=== PATIENT | female | born 1990 | race Caucasian/White ===

== ENCOUNTER 2020-04-17 08:02 | Outpatient (REF) | payer BC, SELFPAY ==
[2020-04-18 19:02] LABS: C. trachomatis RNA TMA NOT DETECTED (NOT DETECTED); N. gonorrhoeae RNA TMA NOT DETECTED (NOT DETECTED)
[2020-04-20 06:57] LABS: HPV mRNA E6/E7 rflx Not Detected (Not Detected)
== END 2020-04-17 08:03 | disposition home or self-care (01) ==
LOC: HO.LAB 08:02
PROVIDERS: PCP Internal Medicine Medical Oncology; Visit Provider Advanced Practice Midwife
DX: Z01.419 Encounter for gynecological examination (general) (routine) without abnormal findings (principal); Z20.2 Contact with and (suspected) exposure to infections with a predominantly sexual mode of transmission; N90.7 Vulvar cyst
CPT/HCPCS: 36415; 87491; 87591; 87624; 88142

== ENCOUNTER 2021-01-23 16:28 | Outpatient (REF) | payer BC, SELFPAY ==
[2021-01-24 04:39] LABS: HBS Num1 71.79 mIU/mL (0-7.99); ~Hepatitis B Surface Antibody REACTIVE (Nonreactive)
[2021-01-24 10:11] LABS: Rubella IgG Antibody 9.04 Index; Rubeola IgG (Measles) >300.00 AU/mL
[2021-01-25 03:56] LABS: Hepatitis A Antibody IgG Nonreactive (Nonreactive); ~Hepatitis A Antibody IgG 0.26 S/CO (0.00-0.99)
[2021-01-29 15:22] LABS: Tetanus Antitoxiod Antibody 1.11 IU/mL
== END 2021-01-23 16:29 | disposition home or self-care (01) ==
LOC: HO.LAB 16:28
PROVIDERS: PCP Internal Medicine Medical Oncology; Visit Provider Internal Medicine Medical Oncology
DX: Z01.84 Encounter for antibody response examination (principal)
CPT/HCPCS: 36415; 86706; 86708; 86735; 86762; 86765; 86774; 86787

== ENCOUNTER → 2021-05-21 08:09 | Outpatient (BNVA) | payer BC, SELFPAY | PROVIDERS: PCP Internal Medicine Medical Oncology; Visit Provider Advanced Practice Midwife ==

== ENCOUNTER → 2021-08-22 09:51 | Outpatient (BNVA) | payer BC, SELFPAY | PROVIDERS: PCP Internal Medicine Medical Oncology; Visit Provider Advanced Practice Midwife | DX: Z13.89 Encounter for screening for other disorder (principal) ==

== ENCOUNTER 2022-07-23 09:14 | Outpatient (REF) | payer BC, SELFPAY ==
[2022-07-23 10:52] LABS: MANUAL DIFF FLAG NO
[2022-07-23 11:29] LABS: Basophils Percent Auto 0.5 % (0-2); Eosinophils Absolute Auto 0.1 X10*3/uL (0.0-0.4); Eosinophils Percent Auto 0.7 % (0-4); Hematocrit 39.6 % (37.0-47.0); Hemoglobin 13.4 g/dl (12.0-16.0); Imm Gran Abs Auto 0.03 X10*3/uL (0.00-0.03); Imm Gran Pct Auto 0.4 % (0.0-0.4); Lymphocytes Absolute Auto 1.8 X10*3/uL (1.2-4.9); Lymphocytes Percent Auto 20.8 % (20-40); Mean Corpuscular HGB Conc 33.8 g/dl (31.0-35.0); Mean Corpuscular Hemoglobin 31.8 pg (27.0-33.0); Mean Corpuscular Volume 93.8 fL (80.0-98.0); Mean Platelet Volume 9.7 fL (9.4-12.3); Monocytes Absolute Auto 0.7 X10*3/uL (0.1-1.2); Monocytes Percent Auto 8.7 % (2-11); Neutrophils Absolute Auto 5.9 x10*3/uL (2.0-8.3); Neutrophils Percent Auto 68.9 % (45-73); Platelet Count 309 X10*3/uL (160-400); Red Blood Count 4.22 X10*6/uL (4.20-5.50); Red Cell Distribution Width 11.6 % (11.0-16.0); White Blood Count 8.5 X10*3/uL (4.8-10.8)
[2022-07-23 12:13] LABS: Alanine Aminotransferase 47 U/L (0-31); Albumin Level 4.6 g/dL (3.5-5.0); Alkaline Phosphatase 49 U/L (39-117); Anion Gap 9 (12-20); Aspartate Amino Transferase 37 U/L (5-31); Bilirubin Total 0.5 mg/dL (0.0-1.0); Blood Urea Nitrogen 9 mg/dL (9-16); Calcium 9.3 mg/dL (8.4-10.2); Carbon Dioxide 28 mmol/L (22-29); Chloride 108 mmol/L (96-108); Cholesterol 206 mg/dL; Estimated Glomerular Filt Rate > 60; Glucose Random 88 mg/dL (60-115); HDL Cholesterol 50 mg/dL; LDL Cholesterol Calculated 143 mg/dl; Potassium 4.1 mmol/L (3.3-5.1); Sodium 141 mmol/L (135-145); Total Protein 7.5 g/dL (6.5-8.0); Triglycerides 69 mg/dL
== END 2022-07-23 09:15 | disposition home or self-care (01) ==
LOC: HO.LAB 09:14
PROVIDERS: Absent Provider Internal Medicine Medical Oncology; PCP Internal Medicine Medical Oncology; Visit Provider Advanced Practice Midwife
DX: Z00.00 Encounter for general adult medical examination without abnormal findings (principal); E61.1 Iron deficiency; B26.9 Mumps without complication; E78.5 Hyperlipidemia, unspecified
CPT/HCPCS: 36415; 80053; 80061; 85025

== ENCOUNTER 2023-08-20 09:29 | Outpatient (AMB) | payer BC, SELFPAY ==
--- NOTE | 2023-08-20 09:36 | A.OFFVIS_ITS ---
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 regarding hormones keeps on breaking out Membership Counselor Required: No Information Interpreted: non-clinical & clinical Independent Trader: Independent Trader Present (Aidyn) Allergies No Known Allergies Allergy (Verified 08/20/23 09:40) Is last menstrual period known: Yes Last menstrual period: 08/12/23 Post menopausal: No HPI Comments Details: She is a premenopausal woman presenting for annual examination. Doing well with no concerns. Doing well on Solange. 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 She denies any contraindications to control such as: migraines with aura, history of DVT or pulmonary emboli, high blood pressure, liver disease, thrombolic disorders, Lupus, +HERMELINDA, breast cancer, or smoking. She tries to eat healthy and stays active with exercise. Currently is sexually active, long-term partner. She denies vaginal itching and irritation. STI screening offered; she declined. Denies family history of breast or ovarian. FH colon cancer-PGF. Last pap smear 2020, negative. PFSH Family History Paternal Grandfather Colon cancer Social History Alcohol intake: current Alcohol intake frequency: holidays/special occasions only Patient Tobacco Use Status: Never used Tobacco Sexual orientation: Straight/Heterosexual Gender identity: Female Female Reproductive History Menstrual Age of Menarche: 11 Duration of menses: 3-5 days Date of last menstrual period: 08/12/23 control method: pills Total pregnancies: 0 Date of last pap smear: 04/18/20 (negative) Review of Systems Const All systems reviewed & are unremarkable except as noted in HPI and below Reports as per HPI Eyes Reports no additional complaints ENT Reports no additional complaints Card Reports no additional complaints Resp Reports no additional complaints GI Reports as per HPI and Reports no additional complaints Reports as per HPI Musc Reports no additional complaints Skin/Breast Reports as per HPI Neuro Reports no additional complaints Psych Reports no additional complaints Endo Reports no additional complaints Rainer/Lymph Reports no additional complaints Aller/Immun Reports no additional complaints Physical Exam Vital Signs: Last Vital Signs BP 118/66 08/20/23 09:38 BMI result Body Mass Index 24.3 Const General: cooperative, healthy appearing, no acute distress, well developed and alert Orientation/consciousness: patient oriented x3 HEENT Head: Yes normal to inspection Eyes General: appearance normal, both eyes and all related structures Neck Neck: Yes normal visual inspection Thyroid: Thyroid normal Chest Chest palpation & inspection: normal inspection of the chest and other (no puckering, dimpling, peau de orange, retraction, discharge, masses) Breast/axilla inspection: normal inspection of the breasts Breast/axilla palpation: normal palpation of the breasts Resp Effort & Inspection: normal respiratory effort GI Inspection: Yes normal to inspection Palpation (GI): Soft to palpation Rectal Exam - Female: deferred General: Yes bladder normal to palpation External Female Exam: normal external appearance and normal appearance of the ur ethra Speculum Exam - Vagina: normal appearance of the vagina, normal palpation and normal vaginal discharge Speculum Exam - Cervix: normal appearance of the cervix and normal palpation Bimanual exam- vagina & uterus: normal bimanual exam, normal palpation, uterine size normal, bladder normal to palpation, normal palpation and non-tender Bimanual Exam- Adnexa, other: no masses Skin General skin exam: no rashes or lesions noted Rashes: no rashes Neuro General: patient oriented x3 Cognition (Neuro): normal cognition Extrem General: Yes normal to inspection Psych Attitude: cooperative Thought process: Normal thought process present Assessment & Plan Assessment & Plan (1) Encounter for annual routine gynecological examination: Code(s): Z01.419 - Encounter for gynecological examination (general) (routine) without abnormal findings Category: Medical Plan: Discussed: Current recommendations for pap smears per ASCCP guidelines. Breast awareness and periodic breast exams. Maintain a healthy lifestyle including a well balanced diet and routine exercise. control hormone use warnings: go to ER if and loss of vision, blindness, severe headache, chest pain or difficulty breathing, severe abdominal pain, or any pain or swelling in an extremity. Patient verbalizes understanding and agrees to the plan of care. She was given opportunity to ask questions and all questions were answered to the best of my ability. 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 This note is constructed using voice recognition software. While every effort has been made to ensure accuracy, fire production operator errors may have been included. Medications: Refilled norethindrone (contraceptive) (Shari) 0.35 mg PO DAILY 84 tabs 4RF 28 days Coding Level of Care Code Est Pt Prev Care 18-39y(61875) Diagnoses Encounter for annual routine gynecological examination Z01.419
[2023-08-20 09:38] VITALS: BP 118/66; BMI 24.3
== END 2023-08-20 10:03 | disposition home or self-care (01) ==
PROVIDERS: PCP Internal Medicine Medical Oncology; Visit Provider Advanced Practice Midwife
DX: Z01.419 Encounter for gynecological examination (general) (routine) without abnormal findings (principal)
CPT/HCPCS: 99395

== ENCOUNTER → 2023-08-20 09:29 | Outpatient (BNVA) | payer BC, SELFPAY | PROVIDERS: PCP Internal Medicine Medical Oncology; Visit Provider Advanced Practice Midwife ==

== ENCOUNTER 2024-09-20 10:11 | Outpatient (REF) | payer BC, SELFPAY ==
[2024-09-20 10:23] LABS: MANUAL DIFF FLAG NO
--- OUTSIDE RECORDS SUMMARY | 2024-09-20 11:17 | XMS_ITS | Patient Health Record ---
Author Organization Joseph Gutiérrez III, MD Address [address] [place] [address] Care Team Providers Care Content Specialist Name Role Phone Joseph Gutiérrez Primary Care [...] 0.2 - 1.3 BLD Positive Negative - Reason For Referral No Information Medications Medication SIG (Take, Route, Fr equency, Duration) Notes Start Date End Date Status Norethindrone 0.35 MG Oral Active Immunizations Vaccine Route Administration Date Status Comme nts Tdap Unknown 12/27/2014 Administered Influenza, quad Unknown 01/20/2020 Administered COVID- 19 Vaccine Unknown 03/07/2021 Administered COVID- 19 Vaccine Unknown 08/12/2020 Administered COVID- 19 Vaccine Unknown 07/14/2020 Administered Influenza, quad Unknown 03/07/2021 Administered Social History Tobacco Use: Social History Observation [...] ast year? No Points 0 Interpretation Negative Problems Problem Type SNOMED Code ICD Code Onset Dates Problem Status W/U Status Risk Notes Problem Mumps without complication (652342868) Mumps without complication (B26.9) Active confirmed Problem 39530008 Iron deficiency (E61.1) Active confirmed She is not currently on medication and is not taking iron. Her CBC will be observed. Problem Food allergy (913854742) Allergy to other foods (Z91.018) Active confirmed Problem 299320823 Environmental allergies (Z91.09) Active confirmed At her request I have referred her to an force variation equipment tender. It is possible she has a food allergy or other causes oral blistering and ulceration. Problem 700157881 Gastroesophageal reflux disease with esophagitis without hemorrhage (K21.00) Active confirmed A regimen of antacid therapy was initiated today. Vital Signs Heart Rate 78 /min 09/23/2023 Temperature 98.1 degrees Fahrenheit 09/23/2023 Blood pressure diastolic 69 mm Hg 09/23/2023 Height 63 in 09/23/2023 Blood pressure systolic 114 mm Hg 09/23/2023 Weight 133 lbs 09/23/2023 BMI 23.56 kg/m2 09/23/2023 Encounters Encounter Location Date Provider Diagnosis Joseph Gutiérrez III, MD [address] [place] [address] [place] [address] 09/23/2023 Joseph Gutiérrez Iron deficiency E61. 1 [...] request I have referred her to an force variation equipment tender. It is possible she has a food allergy or other causes oral blistering and ulceration. Plan Of Treatment Pending Test Test Name Order Date PROFILE, FASTING (COMPREHENSIVE METABOLI C) 07/23/2022 PROFILE, FASTING (COMPREHENSIVE METABOLI C) 09/23/2023 PROFILE, FASTING (COMPREHENSIVE METABOLI C) 05/21/2021 PROFILE, FASTING (COMPREHENSIVE METABOLI C) 03/15/2020 PROFILE, RANDOM (COMPREHENSIVE METABOLIC ) 02/03/2018 LIPID PANEL 03/15/2020 LIPID PANEL 02/03/2018 LIPID PANEL 05/21/2021 CBC w DIFF 07/23/2022 CBC w DIFF 03/15/2020 CBC w DIFF 02/03/2018 CBC w DIFF 05/21/2021 CBC WITH AUTO DIFF 09/23/2023 Ferritin 09/23/2023 Lipid Panel 09/23/2023 Next Appt Details Provider Name:Joseph Gutiérrez, 09/26/2024 09:30:00 AM, [address] [place] [address] [address], [place], [address], Insurance Providers Payer Name Payer Address Payer Phone Subscriber Number Group Number Insured Name Patient Relationship to Insured Coverage Start Date Coverage End Date [facility] [address] [place], [place] [id number] [place] Venegas Self - patient is the insured Medical (General) History Medical History History ICD Code episode of syncope iron deficiency anemia Surgical History Surgery Date(Month/Year) no history of surgical procedures
[2024-09-20 11:38] LABS: Hematocrit 41.6 % (37.0-47.0); Hemoglobin 14.4 g/dl (12.0-16.0); Imm Gran Abs Auto 0.03 X10*3/uL (0.00-0.03); Imm Gran Pct Auto 0.4 % (0.0-0.4); Lymphocytes Absolute Auto 2.4 X10*3/uL (1.2-4.9); Mean Corpuscular HGB Conc 34.6 g/dl (31.0-35.0); Mean Corpuscular Hemoglobin 31.4 pg (27.0-33.0); Mean Corpuscular Volume 90.8 fL (80.0-98.0); NRBC Abs Auto 0.000 X10*3/uL (0.0-0.012); NRBC Pct Auto 0.0 /100WBC (0.0-0.2); Platelet Count 317 X10*3/uL (160-400); Red Blood Count 4.58 X10*6/uL (4.20-5.50); White Blood Count 6.9 X10*3/uL (4.8-10.8)
[2024-09-20 12:06] LABS: Alanine Aminotransferase 23 U/L (0-31); Albumin Level 4.8 g/dL (3.5-5.0); Alkaline Phosphatase 47 U/L (39-117); Anion Gap 12 (12-20); Aspartate Amino Transferase 19 U/L (5-31); Blood Urea Nitrogen 18 mg/dL (9-16); Calcium 9.0 mg/dL (8.4-10.2); Carbon Dioxide 24 mmol/L (22-29); Chloride 106 mmol/L (96-108); Cholesterol 274 mg/dL (<200); Estimated Glomerular Filt Rate > 60; HDL Cholesterol 54 mg/dL (>40); Potassium 3.8 mmol/L (3.3-5.1); Sodium 138 mmol/L (135-145); Total Protein 7.9 g/dL (6.5-8.0); Triglycerides 91 mg/dL (<150)
[2024-09-20 12:26] LABS: Ferritin 244 ng/mL (10-122)
== END 2024-09-20 10:12 | disposition home or self-care (01) ==
LOC: HO.LAB 10:11
PROVIDERS: PCP Internal Medicine Medical Oncology; Visit Provider Internal Medicine Medical Oncology
DX: Z00.00 Encounter for general adult medical examination without abnormal findings (principal); E61.1 Iron deficiency
CPT/HCPCS: 36415; 80053; 80061; 82728; 85025

== ENCOUNTER 2024-10-03 08:55 | Outpatient (REF) | payer BC, SELFPAY ==
[2024-10-03 10:15] LABS: Cholesterol 286 mg/dL (<200); HDL Cholesterol 45 mg/dL (>40); Triglycerides 76 mg/dL (<150)
== END 2024-10-03 08:56 | disposition home or self-care (01) ==
LOC: HO.LAB 08:55
PROVIDERS: Visit Provider Internal Medicine Medical Oncology
DX: Z00.00 Encounter for general adult medical examination without abnormal findings (principal); E61.1 Iron deficiency
CPT/HCPCS: 36415; 80061

== ENCOUNTER 2024-11-28 08:22 | Outpatient (REF) | payer BC, SELFPAY ==
--- OUTSIDE RECORDS SUMMARY | 2023-07-29 13:00 | XMS_ITS ---
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 Name Role Phone Joseph Gutiérrez Primary Care Provider [phone] REASON FOR VISIT Annual Exam Social History Sex Assigned At : Social History Observation Description Sex Assigned At Female Encounters Encounter Location Date Provider Diagnosis Joseph Gutiérrez III, MD [address] [place] [address] [place] [address] 07/29/2023 Joseph Gutiérrez Plan Of Treatment Next Appt Details Provider Name:Joseph Gutiérrez, 12/06/2024 09:00:00 AM, [address] [place] [address] [place], [address], Provider Name:Joseph Gutiérrez, 09/27/2025 09:30:00 AM, [address] [place] [address] [place], [phone], Progress Notes * VENEGASEusebiaOB:[birth year] (34 yo F)Acc No.[id number]:07/29/2023 Progress Notes Patient: [place] CALERO Provider: Andrew Gutiérrez MD :1990 A ge:33 Y S ex:Female Date:07/29/2023 Address:[address] [facility] Subjective: * Chief Complaints: * 1 . Annual Exam. * Medical History: Objective: * Vitals: Assessment: Plan: * Treatment: * Images: * The named appointment provid er may or may not be the originator of this progress note, and it is not deemed complete until electronically signed by the appointment provider. Sign off status: Pending * Provider: Andrew Gutiérrez MD Date: 07/29/2023 Generated for Moriah sandoval/Brooks/Yesenia on: 11/28/2024 09:16 AM EDT
--- OUTSIDE RECORDS SUMMARY | 2023-09-15 13:15 | XMS_ITS ---
Author Organization Joseph Gutiérrez III, MD Address [address] [place] [address] [place] [address] Care Team Providers Care Cycle Repairer Name Role Phone Joseph Gutiérrez Primary Care Provider REASON FOR VISIT Annual Exam Social History Sex Assigned At : Social History Observation Description Sex Assigned At Female Encounters Encounter Location Date Provider Diagnosis Joseph Gutiérrez III, MD [address] [place] [address] [address] [facility] [place] [address] 09/15/2023 Joseph Gutiérrez Plan Of Treatment Next Appt Details Provider Name:Joseph Gutiérrez, 12/06/2024 09:00:00 AM, [address] [place] [address] [place], [address], Provider Name:Joseph Gutiérrez, 09/27/2025 09:30:00 AM, [address] [place] [address] [address] [facility] [place] [place], [address], Progress Notes * VENEGASEusebiaOB:[birth year] (34 yo F)Acc No.[id number]:09/15/2023 Progress Notes Patient: [place] CALERO Provider: Andrew Gutiérrez MD :1990 A ge:33 Y S ex:Female Date:09/15/2023 Address:[address] [id number] Subjective: * Chief Complaints: * 1 . Annual Exam. * Medical History: Objective: * Vitals: Assessment: Plan: * Treatment: * Images: * The named appointment provid er may or may not be the originator of this progress note, and it is not deemed complete until electronically signed by the appointment provider. Sign off status: Pending * Provider: Andrew Gutiérrez MD Date: 0 09/15/2023 Generated for Moriah sandoval/Brooks/Yesenia on: 11/28/2024 09:16 AM EDT
--- OUTSIDE RECORDS SUMMARY | 2023-09-23 05:00 | XMS_ITS ---
Author Organization Joseph Gutiérrez III, MD Address [address] [place] [address] Care Team Providers Care Records Supervisor Name Role Phone Joseph Gutiérrez Primary Care Provider Allergies Allergen (clinical drug ingredient) Drug/Non Drug Allergy documented on EMR Reaction Allergy Type Onset Date Status No Known Drug Allergy Unknown Drug Allergy Active Results Component Value Reference Range Notes URINE DIP STICK Reviewed date:09/23/2023 02:36:38 PM Interpretation: Performing Lab: Notes/Report: SG 1.030 1.005 - 1.025 pH 5.0 5.0 - 9.0 BRANDY Negative Negative - NIT Negative Negative - PRO 15 Negative - Trace GLU Negative Negative - KET Negative Negative - UBG 0.2 0.1 - 1.8 KAILEE Negative 0.2 - 1.3 BLD Positive Negative - REASON FOR VISIT Annual Exam Medications Medication SIG (Take, Route, Fr equency, Duration) Notes Start Date End Date Status Norethindrone 0.35 MG Oral Active Social History Tobacco Use: Social History Observation Description Date Details (start date - stop date) Never Smoker NA - NA Sex Assigned At : Social History Observation Description Sex Assigned At Female Tobacco Use/Smoking Question Answer Notes Patient is a nonsmoker Additional Findings: Tobacco Non-User Aggressive non-smoker Alcohol Screen Question Answer Notes Did you have a drink containing alcohol in the p ast year? No Points 0 Interpretation Negative Vital Signs Temperature 98.1 degrees Fahrenheit 09/23/19 24 Blood pressure systolic 114 mm Hg 09/23/19 24 Blood pressure diastolic 69 mm Hg 024 Heart Rate 78 /min 09/23/2023 Height 63 in 09/23/2023 Weight 133 lbs 09/23/2023 BMI 23.56 kg/m2 09/23/2023 Encounters Encounter Location Date Provider Diagnosis Joseph Gutiérrez III, MD [address] [place] [address] [place] [address] 09/23/2023 Joseph Gutiérrez Iron deficiency E61. 1 ; Gastroesophageal reflux disease with esophagitis without hemorrhage K21.00 and Environmental allergies Z91.09 Assessments Encounter Date Diagnosis (ICD Code) Assessment Notes Treat ment Notes Treatment Clinical Notes 09/23/2023 Iron deficiency (ICD -10 - E61.1) She is not currently on medication and is not taking iron. Her CBC will be observed. 09/23/2023 Gastroesophageal ref lux disease with esophagitis without hemorrhage (ICD-10 - K21.00) A regimen of antacid therapy was initiated today. 09/23/2023 Environmental allerg ies (ICD-10 - Z91.09) At her request I have referred her to an gis professor. It is possible she has a food allergy or other causes oral blistering and ulceration. Plan Of Treatment Medication Medication Name Sig Start Date Stop Date Notes Norethindrone 0.35 MG Oral Pending Test Test Name Order Date PROFILE, FASTING (COMPREHENSIVE METABOLI C) 09/23/2023 CBC WITH AUTO DIFF 09/23/2023 Ferritin 09/23/2023 Lipid Panel 09/23/2023 Next Appt Details Follow Up: 1 Year, Reason: O V, Annual Exam Provider Name:Joseph Gutiérrez, 12/06/2024 09:00:00 AM, [address] [place] [address] [address], [place], [phone], Provider Name:Joseph Gutiérrez, 09/27/2025 09:30:00 AM, [address] [place] [address] [place], [address], Progress Notes * Eusebia VENEGASOB:[birth year] (33 yo F)Acc No.[id number]:09/23/2023 Progress Notes Patient: [place] Bunch Provider: Andrew Gutiérrez MD :1990 A ge:33 Y S ex:Female Date:09/23/2023 Address:[address] [facility] Subjective: * Chief Complaints: * A nnual Exam * HPI: D epression Screening: She returns to the office at the age of 33 for her annual physical examination. She remains healthy and well. Her periods are regular. 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 She is not . Her esophageal reflux symptoms are well controlled. Her allergies were mild this year. She has been to an gis professor and is being treated. PHQ-9 L ittle interest or pleasure in doing things?Not at all F eeling down, depressed, or hopeless S ever T rouble falling or staying asleep, or sleeping too much N ot at all F eeling tired or having little energy S ever P oor appetite or overeating N ot at all F eeling bad about yourself or that you are a failure, or have let yourself or your family down N ot at all T rouble concentrating on things, such as reading the newspaper or watching television S ever M oving or speaking so slowly that other people could have noticed; or the opposite, being so fidgety or restless that you have been moving around a lot more than usual N ot at all T houghts that you would be better off or of hurting yourself in some way N ot at all T otal Score 3 I nterpretation M inimal Depression C OVID-19 Screening: Questions H ave you experienced fever, chills, cough, sore throat, shortness of breath, difficulty breathing, muscle aches, loss of taste or smell? N o H ave you been exposed to the virus within the last 10 days? N o H ave you travelled internationally in the last 10 days? N o H ave you been exposed to COVID-19 in the past? Y es S YOKO Questions: SDOH Questions I n the past year have you been worried about losing your housing? N o I n the past year have you or any family members you live with been unable to get any of the following when it was really needed? Check all that apply: N one * ROS: G eneral/Constitutional: pain o nly normal aches and pains. C hills d enies.?Fatigue a dmits. F ever d enies. E NT: Decreased hearing d enies. R espiratory: Cough d enies. C ardiovascular: Chest pain with exertion d enies. D yspnea on exertion?denies. S hortness of breath d enies. G astrointestinal: Constipation o ccasional. D ecreased appetite d enies. D iarrhea d enies. H eartburn c ontrolled with medications. N ausea d enies. R ectal bleeding d enies. V omiting d enies. H ematology: bruising d enies. p etechiae d enies. S wollen glands n one have been noted. G enitourinary: Frequent urination d enies. M usculoskeletal: Muscle aches d enies. P ainful joints d enies. S ciatica d enies. W eakness d enies. S kin: Itching d enies. R angus d enies. S kin lesion(s)?denies. N eurologic: Difficulty speaking d enies. D izziness d enies.?Headache d enies. L ow back pain d enies. P sychiatric: Depressed mood d enies. * Medical History: * Surgical History: n o history of surgical procedures * Hospitalization/Major Diagno stic Procedure: D enies Past Hospitalization * Family History: F ather: alive 55 yrs, Prediabetes, diagnosed with DM. M other: alive 54 yrs, Hyperlipidemia on statin therapy, hypertension, diagnosed with Hyperlipidemia. M aternal Grand Father: alive, diagnosed with CVD. M aternal Grand Mother: alive, diagnosed with Hyperlipidemia, HTN. 2 sister(s) - healthy. . Her mother has hyperlipidemia and hypertension. A maternal grandfather has had a stroke. A maternal grandmother has hypertension and hyperlipidemia. HER-2 sisters are healthy and well. She is unaware of any history of uterine cancer or breast cancer. She has no children. A paternal grandfather in July 2019 of colon cancer. She is not aware of any family history of mental illness or substance use disorder. * Social History: T obacco Use: T obacco Use/Smoking P atient is a n onsmoker A dditional Findings: Tobacco Non-User A ggressive non-smoker D rugs/Alcohol: D rugs H ave you used drugs other than those for medical reasons in the past 12 months? N o Alcohol Screen D id you have a drink containing alcohol in the past year? N o P oints 0 I nterpretation N egative S he has been to [place] for 6 years. She has no children yet. She is a Worship who will decline transfusions. Her ldr rn is at [facility]. 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 * Medications: T akingNorethindrone 0.35 MG Tablet Oral Medication List reviewed and reconciled with the patientTaking Norethindrone 0.35 MG Tablet Oral Medication List reviewed and reconciled with the patient * Allergies: N o Known Drug Allergyno[Allergies Verified] Objective: * Vitals: H t: 63, Wt: 133, BMI:23.56, BP: 114/69, HR: 78, Temp: 98.1, Wt-k.33. * Examination: G eneral Examination: GENERAL APPEARANCE: p leasant, well nourished, well developed, in no acute distress, calm and relaxed. HEAD: a traumatic, normocephalic. EYES: e maggie, perrla, anicteric, conjugate. EARS: n ormal. NOSE: s eptum intact. ORAL CAVITY: n ormal, unremarkable. NECK/THYROID: n o jugular venous distention, no carotid bruit, thyroid normal. LYMPH NODES: n o enlarged lymph nodes,spleen normal. SKIN: n o suspicious lesions, anicteric. HEART: n o clicks, gallops, murmurs, or rubs, regular rhythm, S1, S2 normal, no s3, or vascular bruits. LUNGS: c lear to auscultation . BREASTS: n ot examined. ABDOMEN: b owel sounds normal, no ascites, no organomegaly, no mass. RECTAL EXAM: n ot examined. MUSCULOSKELETAL: e xtremities unremarkable, no clubbing, cyanosis or edema. PERIPHERAL PULSES: n ormal. NEUROLOGIC: a lert and oriented, cranial nerves 2-12 grossly intact, deep tendon reflexes 2+ symmetrical, motor strength normal upper and lower extremities, sensory exam intact. PSYCH: a lert, oriented. Assessment: * Assessment: 1. I gini deficiency - E61.1, She is not currently on medication and is not taking iron. Her CBC will be observed. 2 . G astroesophageal reflux disease with esophagitis without hemorrhage - K21.00, A regimen of antacid therapy was initiated today. 3 . E nvironmental allergies - Z91.09, At her request I have referred her to an gis professor. It is possible she has a food allergy or other causes oral blistering and ulceration. Plan: * Treatment: 2. O thers Continue Norethindrone Tablet, 0.35 MG, Oral. * Labs: * L ab: URINE DIP STICK Value Reference Range S G 1.030 1.005 - 1.025 * p H 5.0 5.0 - 9.0 * L EU Negative Negative - * N IT Negative Negative - * P RO 15 Negative - Trace * G PURNIMA Negative Negative - * K ET Negative Negative - * U BG 0.2 0.1 - 1.8 * B IL Negative 0.2 - 1.3 * B LD Positive Negative - * Procedure Codes: 8 1002 URINE-NO MICRO * Follow Up: 1 Year (Reason: OV, Annual Exam) * Images: * Sign off status: Completed true * Provider: Andrew Gutiérrez MD Date: 0 09/23/2023 Generated for Moriah sandoval/Brooks/eTransmitting on: 0 11/28/2024 09:16 AM EDT History and Physical Notes * HPI (History of Present Illness) Category Sub-Category Detail Notes Depression Screening PHQ-9 Little inte rest or pleasure in doing things: Not at all Feeling down, depressed, or hopeless: Se veral days Trouble falling or staying asleep, or sl eeping too much: Not at all Feeling tired or having little energy: S everal days Poor appetite or overeating: Not at all Feeling bad about yourself o r that you are a failure, or have let yourself or your family down: Not at all Trouble concentrating on thi ngs, such as reading the newspaper or watching television: Several days Moving or speaking so slowly that other people could have noticed; or the opposite, being so fidgety or restless that you have been moving around a lot more than usual: Not at all Thoughts that you would be b zully off or of hurting yourself in some way: Not at all Total Score: 3 Interpretation: Minimal Depression COVID-19 Screening Questions Have you had any new onset fever, chills, cough, congestion, sore throat, shortness of breath, muscle aches?: No Have you been exposed to the virus with n the last 10 days?: No Have you travelled internationally in [facility] last 10 days?: No Have you been exposed to COVID-19 in the past?: Yes SDOH Questions SDOH Questions In the past year have you been worried about losing your housing?: No In the past year have you or any family members you live with been unable to get any of the following when it was really needed? Check all that apply:: None Examination Category Sub-Category Detail Notes General Examination GENERAL APPEARANCE: pleasant , well nourished, well developed, in no acute distress, calm and relaxed HEAD: atraumatic, normocep halic EYES: eomi, perrla, anicte jhon, conjugate EARS: normal NOSE: septum intact NECK/THYROID: no jugular venous di stention, no carotid bruit, thyroid normal HEART: no clicks, gallops, murmurs, or rubs, regular rhythm, S1, S2 normal, no s3, or vascular bruits LUNGS: clear to auscultatio n ABDOMEN: bowel sounds normal, no ascites, no organomegaly, no mass NEUROLOGIC: alert and oriented, cranial nerves 2-12 grossly intact, deep tendon reflexes 2+ symmetrical, motor strength normal upper and lower extremities, sensory exam intact SKIN: no suspicious lesion s, anicteric PERIPHERAL PULSES: normal BREASTS: not examined MUSCULOSKELETAL: extremities unremark able, no clubbing, cyanosis or edema LYMPH NODES: no enlarged lymph no addison,spleen normal RECTAL EXAM: not examined PSYCH: alert, oriented ORAL CAVITY: normal, unremarkable
--- OUTSIDE RECORDS SUMMARY | 2024-09-26 05:30 | XMS_ITS ---
Author Organization Joseph Gutiérrez III, MD Address [address] [place] [address] Care Team Providers Care Pig Handler Name Role Phone Joseph Gutiérrez Primary Care Provider [phone] Allergies Allergen (clinical drug ingredient) Drug/Non Drug Allergy documented on EMR Reaction Allergy Type Onset Date Status No Known Drug Allergy Unknown Drug Allergy Active No Known Food Allergy Unknown Drug Allergy Active Results Component Value Reference Range Notes Lipid Panel Reviewed date:10/22/2024 07:24:05 PM Interpretation: Performing Lab:[facility], [address] [place] [phone] Notes/Report: Triglycerides 76 <150 mg/dL Desirable Triglyceride: less than 150 mg/dL Borderline High Triglyceride 150-199 mg/dL High Triglyceride: 200-499 mg/dL Very High Triglyceride: greater than or equal to 5OO mg/dL Cholesterol 286 <200 mg/dL Desirable Cholesterol: less than 200 mg/dL Borderline High Cholesterol: 200-239 mg/dL High Cholesterol: greater than 239 mg/dL LDL Cholesterol Calculated 226 <100 mg/dL Desirable LDL: less than 100 mg/dL Near Optimal/Above Optimal LDL: 110-129 mg/dL Borderline High LDL: 130-159 mg/dL High LDL: 160-189 mg/dL Very High LDL: greater than or equal to 190 mg/dL HDL Cholesterol 45 >40 mg/dL Desirable HDL: greater than 40 mg/dL Note: This HDL assay may give artificially low results in patients with liver disease. REASON FOR VISIT Annual Exam Medications Medication SIG (Take, Route, Fr equency, Duration) Notes Start Date End Date Status Norethindrone 0.35 MG Oral Active Social History Tobacco Use: Social History Observation Description Date Details (start date - stop date) Never Smoker NA - NA Sex Assigned At : Social History Observation Description Sex Assigned At Female Tobacco Control (Standard) Question Answer Notes Tobacco use: Nonsmoker Additional Findings: Tobacco non-user Aggressive nonsmoker AUDIT-C (Standard) Question Answer Notes Did you have a drink contain ing alcohol in the past year? Yes How often did you have six o r more drinks on one occasion in the past year? Less than monthly (1 point) How many drinks did you have on a typical day when you were drinking in the past year? 1 or 2 drinks (0 point) How often did you have a dri nk containing alcohol in the past year? Never (0 point) Points 1 Interpretation Negative Problems Problem Type SNOMED Code ICD Code Onset Dates Problem Status W/U Status Risk Notes Problem [id number] Elevated cholesterol (E78.00) Active confirmed She is going to learn the elements of a cholesterol reduction diet and practice in 2 months and then return after another fasting lipid profile. If necessary. She will be given a statin. We discussed the risks and benefits and rationale for statin medication today. Vital Signs Temperature 98.4 degrees Fahrenheit 09/27/19 25 Blood pressure systolic 113 mm Hg 09/27/19 25 Blood pressure diastolic 73 mm Hg 025 Heart Rate 72 /min 09/26/2024 Height 63 in 09/26/2024 Weight 137 lbs 09/26/2024 BMI 24.27 kg/m2 09/26/2024 Encounters Encounter Location Date Provider Diagnosis Joseph Gutiérrez III, MD [address] [place] [address] [place] [address] 09/26/2024 Joseph Gutiérrez Iron deficiency E61. 1 ; Environmental allergies Z91.09 ; Gastroesophageal reflux disease with esophagitis without hemorrhage K21.00 and Elevated cholesterol E78.00 Assessments Encounter Date Diagnosis (ICD Code) Assessment Notes Treat ment Notes Treatment Clinical Notes 09/26/2024 Iron deficiency (ICD -10 - E61.1) This problem is now resolved. Her CBC is unremarkable. 09/26/2024 Environmental allerg ies (ICD-10 - Z91.09) At her request I have referred her to an laryngologist. It is possible she has a food allergy or other causes oral blistering and ulceration. 09/26/2024 Gastroesophageal ref lux disease with esophagitis without hemorrhage (ICD-10 - K21.00) A regimen of antacid therapy was initiated today. 09/26/2024 Elevated cholesterol (ICD-10 - E78.00) A previous value was 206. It is now 274 fasting. This value will be repeated Plan Of Treatment Medication Medication Name Sig Start Date Stop Date Notes Norethindrone 0.35 MG Oral Pending Test Test Name Order Date PROFILE, FASTING (COMPREHENSIVE METABOLI C) 09/26/2024 CBC w DIFF 09/26/2024 Next Appt Details Follow Up: 1 week and 1 year , Reason: ov review labs Provider Name:Joseph Gutiérrez, 12/06/2024 09:00:00 AM, [address] [place] [address] [address] [place], [address], Provider Name:Joseph Gutiérrez, 09/27/2025 09:30:00 AM, [address] [place] [address] [address], [place], [address], Progress Notes * Mayra VENEGASteDOB:[birth year] (34 yo F)Acc No.[id number]:09/26/2024 Progress Notes Patient: [place] CALERO Provider: Andrew Gutiérrez MD :1990 A ge:34 Y S ex:Female Date:09/26/2024 Address:[address] [place], [place] [address] Subjective: * Chief Complaints: * A nnual Exam * HPI: D epression Screening: She returns to the office at the age of 34 for her annual physical examination. Since her last visit she has been healthy and well with no new allergies, invasive procedures or emergency room visits. Comprehensive blood work was available and was reviewed with her in detail. PHQ-9 L ittle interest or pleasure in doing things?Several days F eeling down, depressed, or hopeless N ot at all T rouble falling or staying asleep, or sleeping too much N ot at all F eeling tired or having little energy S everal days P oor appetite or overeating N ot at all F eeling bad about yourself or that you are a failure, or have let yourself or your family down N ot at all T rouble concentrating on things, such as reading the newspaper or watching television N ot at all M oving or speaking so slowly that other people could have noticed; or the opposite, being so fidgety or restless that you have been moving around a lot more than usual N ot at all T houghts that you would be better off or of hurting yourself in some way N ot at all T otal Score 2 I nterpretation M inimal Depression C OVID-19 Screening: Questions H ave you had any new onset fever, chills, cough, congestion, sore throat, shortness of breath, muscle aches? N o S YOKO Questions: SDOH Questions I n [...] of breath d enies. G astrointestinal: Constipation d enies. D ecreased appetite d enies.?Diarrhea d enies. H e[place]burn c ontrolled with medications. N ausea d enies.?Rectal bleeding d enies. V omiting d enies. [...] M aternal Grand Mother: alive, diagnosed with HTN, Hyperlipidemia. 2 sister(s) - healthy. . Her mother [...] Social History: T obacco Use: T obacco Control (Standard) T obacco use: N onsmoker A dditional Findings: Tobacco non-user A ggressive nonsmoker D rugs/Alcohol: D rugs H ave you used drugs other than those for medical reasons in the past 12 months? N o D rug/Alcohol: A TRAN-C (Standard) D id you have a drink containing alcohol in the past year? Y es H ow often did you have six or more drinks on one occasion in the past year? L ess than monthly (1 point) H ow many drinks did you have on a typical day when you were drinking in the past year? 1 or 2 drinks (0 point) H ow often did you have a drink containing alcohol in the past year? N ever (0 point) P oints 1 I nterpretation N egative S he has been to [place] for 6 years. She has no children yet. She is a Temple who will decline transfusions. 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 * Medications: T akingNorethindrone 0.35 MG Tablet Oral Medication List reviewed and reconciled with the patientTaking Norethindrone 0.35 MG Tablet Oral Medication List reviewed and reconciled with the patient * Allergies: N o Known Drug AllergyNo Known Food Allergyno[Allergies Verified] Objective: * Vitals: H t: 63, Wt: 137, BMI:24.27, BP: 113/73, HR: 72, Temp: 98.4, Wt-k.14. * P ast Orders: Lab:Complete Blood Count Aut o Diff * Collection Date 09/20/2024 07/23/2022 Collection Time 10:22 AM 10:52 AM Order Date 09/20/2024 07/23/2022 White Blood Count 6.9 (Ref Range: 4.8-10.8 X10*3/uL) 8.5 (Ref Range: 4.8-10.8 X10*3/uL) Red Blood Count 4.58 (Ref Range: 4.20-5.50 X10*6/uL) 4.22 (Ref Range: 4.20-5.50 X10*6/uL) Hemoglobin 14.4 (Ref Range: 12.0-16.0 g/dl) 13.4 (Ref Range: 12.0-16.0 g/dl) Hematocrit 41.6 (Ref Range: 37.0-47.0 %) 39.6 (Ref Range: 37.0-47.0 %) Mean Corpuscular Volume 90.8 (Ref Range: 80.0-98.0 fL) 93.8 (Ref Range: 80.0-98.0 fL) Mean Corpuscular Hemoglobin 31.4 (Ref Range: 27.0-33.0 pg) 31.8 (Ref Range: 27.0-33.0 pg) Mean Corpuscular HGB Conc 34.6 (Ref Range: 31.0-35.0 g/dl) 33.8 (Ref Range: 31.0-35.0 g/dl) Red Cell Distribution Width 11.5 (Ref Range: 11.0-16.0 %) 11.6 (Ref Range: 11.0-16.0 %) Platelet Count 317 (Ref Range: 160-400 X10*3/uL) 309 (Ref Range: 160-400 X10*3/uL) Mean Platelet Volume 9.6 (Ref Range: 9.4-12.3 fL) 9.7 (Ref Range: 9.4-12.3 fL) Neutrophils Percent Auto 53.8 (Ref Range: 45-73 %) 68.9 (Ref Range: 45-73 %) Imm Gran Pct Auto 0.4 (Ref Range: 0.0-0.4 %) 0.4 (Ref Range: 0.0-0.4 %) Lymphocytes Percent Auto 34.7 (Ref Range: 20-40 %) 20.8 (Ref Range: 20-40 %) Monocytes Percent Auto 9.1 (Ref Range: 2-11 %) 8.7 (Ref Range: 2-11 %) Eosinophils Percent Auto 1.4 (Ref Range: 0-4 %) 0.7 (Ref Range: 0-4 %) Basophils Percent Auto 0.6 (Ref Range: 0-2 %) 0.5 (Ref Range: 0-2 %) NRBC Pct Auto 0.0 (Ref Range: 0.0-0.2 /100WBC) 0.0 (Ref Range: 0.0-0.2 /100WBC) Neutrophils Absolute Auto 3.7 (Ref Range: 2.0-8.3 x10*3/uL) 5.9 (Ref Range: 2.0-8.3 x10*3/uL) Imm Gran Abs Auto 0.03 (Ref Range: 0.00-0.03 X10*3/uL) 0.03 (Ref Range: 0.00-0.03 X10*3/uL) Lymphocytes Absolute Auto 2.4 (Ref Range: 1.2-4.9 X10*3/uL) 1.8 (Ref Range: 1.2-4.9 X10*3/uL) Monocytes Absolute Auto 0.6 (Ref Range: 0.1-1.2 X10*3/uL) 0.7 (Ref Range: 0.1-1.2 X10*3/uL) Eosinophils Absolute Auto 0.1 (Ref Range: 0.0-0.4 X10*3/uL) 0.1 (Ref Range: 0.0-0.4 X10*3/uL) Basophils Absolute Auto 0.0 (Ref Range: 0.0-0.2 X10*3/uL) 0.0 (Ref Range: 0.0-0.2 X10*3/uL) NRBC Abs Auto 0.000 (Ref Range: 0.0-0.012 X10*3/uL) 0.000 (Ref Range: 0.0-0.012 X10*3/uL) ???Lab:Comprehensive [place]. Panel Fast (Order Date - 09/20/2024) (Collection Date & Time - 09/20/2024 10:22 AM)?ValueReference Range?[id number] 145 - mmol/L?Bilirubin Total0.40.0-1.0 - mg/dL?Aspartate Amino Uqiksvjxigk893-67 - U/L?Alanine Bddeoaqkudvmkfjg898-80 - U/L?Total Protein7.96.5-8.0 - g/dL?Albumin Level4.83.5-5.0 - g/dL?Alkaline Ssuzbawsgdj5132-416 - U/L?Potassium3.83.3-5.1 - mmol/L?Ctgfszip169 96-108 - mmol/L?Carbon Icdqrbj2169-97 - mmol/L?Anion Fjs5888-23 - ?Blood Urea Glbjxget27R9-25 - mg/dL?Creatinine0.860.5-1.4 - mg/dL ?Estimated Glomerular Filt Rate> 60-?Glucose Idtwqoy9606-18 - mg/dL?Calcium9.08.4-10.2 - mg/dL ???Lab:Ferritin (Order Date - 09/20/2024) (Collection Date & Time - 09/20/2024 10:22 AM)?ValueReference Range?Mtqcxlzv776A48-280 - ng/mL * Lab:Lipid Panel * Collection Date 09/20/2024 07/23/2022 Collection Time 10:22 AM 10:52 AM Order Date 09/20/2024 07/23/2022 Triglycerides 91 (Ref Range: <150 mg/dL) 69 (Ref Range: mg/dL) Cholesterol 274 H (Ref Range: <200 mg/dL) 206 (Ref Range: mg/dL) LDL Cholesterol Calculated 202 H (Ref Range: <100 mg/dL) 143 (Ref Range: mg/dl) HDL Cholesterol 54 (Ref Range: >40 mg/dL) 50 (Ref Range: mg/dL) * Examination: G eneral Examination: GENERAL APPEARANCE: p leasant, well nourished, well developed, in no acute distress, calm and relaxed, woman. HEAD: a traumatic, normocephalic. EYES: e maggie, [...] LUNGS: c lear to auscultation . BREASTS: N ot examined, deferred to LIVING SPECIALIST at her request. ABDOMEN: b owel sounds normal, no ascites, no organomegaly, no mass. RECTAL EXAM: n ot examined. MUSCULOSKELETAL: e xtremities unremarkable, no clubbing, cyanosis or edema. PERIPHERAL PULSES: n ormal. NEUROLOGIC: a lert and oriented, cranial nerves 2-12 grossly intact, deep tendon reflexes 2+ symmetrical, motor strength normal upper and lower extremities, sensory exam intact. PSYCH: a lert, oriented. Assessment: * Assessment: 1. E nvironmental allergies - Z91.09 (Primary) N otes :At her request I have referred her to an laryngologist. It is possible she has a food allergy or other causes oral blistering and ulceration. 2 . I gini deficiency - E61.1 N otes :This problem is now resolved. Her CBC is unremarkable. 3 . G astroesophageal reflux disease with esophagitis without hemorrhage - K21.00 N otes :A regimen of antacid therapy was initiated today. 4 . E levated cholesterol - E78.00 N otes :A previous value was 206. It is now 274 fasting. This value will be repeated Plan: * Treatment: 2. O thers Continue Norethindrone Tablet, 0.35 MG, Oral. * Procedure Codes: * Follow Up: 1 week and 1 year (Reason: ov review labs) * Images: * Sign off status: Completed true * Provider: Andrew Gutiérrez MD Date: 0 09/26/2024 Generated for Moriah sandoval/Brooks/Tamiransmitting on: 0 11/28/2024 09:16 AM EDT History and Physical Notes * HPI (History of Present Illness) Category Sub-Category Detail Notes Depression Screening PHQ-9 Little inte rest or pleasure in doing things: Several days Feeling down, depressed, or hopeless: No t at all Trouble falling or staying asleep, or sl [...] as reading the newspaper or watching television: Not at all Moving or speaking so slowly that other people could have noticed; or the opposite, being so fidgety or restless that you have been moving around a lot more than usual: Not at all Thoughts that you would be b zully off or of hurting yourself in some way: Not at all Total Score: 2 Interpretation: Minimal Depression COVID-19 Screening Questions Have you had any new onset fever, chills, cough, congestion, sore throat, shortness of breath, muscle aches?: No SDOH Questions SDOH Questions In the past [...] developed, in no acute distress, calm and relaxed, woman HEAD: atraumatic, normocep halic EYES: eomi, perrla, [...] lesion s, anicteric PERIPHERAL PULSES: normal BREASTS: Not examined, deferr ed to LIVING SPECIALIST at her request MUSCULOSKELETAL: extremities unremark able, no clubbing, cyanosis or edema LYMPH NODES: no enlarged lymph no addison,spleen normal RECTAL EXAM: not examined PSYCH: alert, oriented ORAL CAVITY: normal, unremarkable
--- OUTSIDE RECORDS SUMMARY | 2024-10-05 05:30 | XMS_ITS ---
Author Organization Joseph Gutiérrez III, MD Address [address] [place] [address] Care Team Providers Care Review Manager Name Role Phone Joseph Gutiérrez Primary Care Provider Allergies Allergen (clinical drug ingredient) Drug/Non Drug Allergy documented on EMR Reaction Allergy Type Onset Date Status No Known Drug Allergy Unknown Drug Allergy Active No Known Food Allergy Unknown Drug Allergy Active Reason For Referral Reason Evaluate and Treat Low Cholesterol Diet Diagnosis 1 High cholesterol (E7 8.00) Referral Organization Joseph Gutiérrez III, MD Referring Provider First Name Joseph Referring Provider Last Name Brock Referring Provider Speciality Internal M edicine Referred Provider Anshul ASKEW Referred Provider Specialty Nutrition General Notes Roz Ellis 10/05/2024 10:51:34 AM > Cover sheet, referral and demographics faxed to Charmaine Gutiérrez. Patient was advised to contact and schedule appt with her or with [facility]., Roz Ellis 10/05/2024 01:35:22 PM > Patient was able to schedule an appointment with [facility] for 10/06/24 @ 9:30am Referral Priority Routine Referral Appointment Date 10/06/2024 REASON FOR VISIT Elevated cholesterol Medications Medication SIG (Take, Route, Fr equency, [...] Nonsmoker Additional Findings: Tobacco non-user Aggressive nonsmoker Vital Signs Temperature 97.5 degrees Fahrenheit 10/06/19 25 Blood pressure systolic 131 mm Hg 10/06/19 25 Blood pressure diastolic 68 mm Hg 025 Heart Rate 80 /min 10/05/2024 Height 63 in 10/05/2024 Weight 134 lbs 10/05/2024 BMI 23.73 kg/m2 10/05/2024 Encounters Encounter Location Date Provider Diagnosis Joseph Gutiérrez III, MD [address] [place] [address] [place] [address] 10/05/2024 Joseph Gutiérrez Elevated cholesterol E78.00 ; Environmental allergies Z91.09 and Gastroesophageal reflux disease with esophagitis without hemorrhage K21.00 Assessments Encounter Date Diagnosis (ICD Code) Assessment Notes Treat ment Notes Treatment Clinical Notes 10/05/2024 Elevated cholesterol (ICD-10 - E78.00) She is going to learn the elements of a cholesterol reduction diet and practice in 2 months and then return after another fasting lipid profile. If necessary. She will be given a statin. We discussed the risks and benefits and rationale for statin medication today. 10/05/2024 Environmental allerg ies (ICD-10 - Z91.09) At her request I have referred her to an high school library media specialist. It is possible she has a food allergy or other causes oral blistering and ulceration. 10/05/2024 Gastroesophageal ref lux disease with esophagitis without hemorrhage (ICD-10 - K21.00) A regimen of antacid therapy was initiated today. Plan Of Treatment Medication Medication Name Sig Start Date Stop Date Notes Norethindrone 0.35 MG Oral Pending Test Test Name Order Date Lipid Panel 10/05/2024 Referrals Referral Date Details 10/05/2024 10/05/2024, Evaluate and Treat Low Cholesterol Diet, SERVICES [facility] Next Appt Details Follow Up: 2 Months, Reason: OV Provider Name:Joseph Gutiérrez, 12/06/2024 09:00:00 AM, [address] [place] [address] [address], [place], [address], Provider Name:Joseph Gutiérrez, 09/27/2025 09:30:00 AM, [address] [place] [address] [place], [address], Progress Notes * Sean VENEGAS:[birth year] (34 yo F)Acc No.[id number]:10/05/2024 Progress Notes Patient: [place] CALERO Provider: Andrew Gutiérrez MD :1990 A ge:34 Y S ex:Female Date:10/05/2024 Address:[address] [place], [place] [id number] Subjective: * Chief Complaints: * E levated cholesterol * HPI: C OVID-19 Screening: Into thousand 23. Her total cholesterol level was 206.Recently was 274 fasting. We repeated it and is now 286. She says she has been consuming a very low-cholesterol diet. We researched and discussed the cause of required hyperlipidemia. Other than diet. Her mother is taking a statin medication, elevated cholesterol, but she is not aware of any family history of genetically determined elevated lipids. We discussed the alternatives of a statin medication or visiting a dietitian and then utilizing diet. She chose the latter. She was referred to our dietitian and will return in 8 weeks after fasting lipid profile and a certified low-cholesterol diet. Questions H ave you had any new onset fever, chills, cough, congestion, sore throat, shortness of breath, muscle aches? N o * ROS: G eneral/Constitutional: pain o nly [...] appetite d enies.?Diarrhea d enies. H eartburn d enies. N ausea d enies. R ectal bleeding?denies. V omiting d enies. H ematology: bruising [...] dditional Findings: Tobacco non-user A ggressive nonsmoker S he has been to [place] for 6 years. She has no children yet. She is a Bahai who will decline transfusions. Her pattern stamper is at [employer]. 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 * Medications: T akingNorethindrone 0.35 MG Tablet Oral Medication List reviewed and reconciled with the patientTaking Norethindrone 0.35 MG Tablet Oral Medication List reviewed and reconciled with the patient * Allergies: N o Known Drug AllergyNo Known Food Allergyno[Allergies Verified] Objective: * Vitals: H t: 63, Wt: 134, BMI:23.73, BP: 131/68, HR: 80, Temp: 97.5, Wt-k.78. * P ast Orders: Lab:Complete Blood Count [...] X10*3/uL) 0.000 (Ref Range: 0.0-0.012 X10*3/uL) ???Lab:[facility] [place]. Panel Fast (Order Date - 09/20/2024) (Collection Date & Time - 09/20/2024 10:22 AM)?ValueReference Range?[id number] 145 - mmol/L?Bilirubin Total0.40.0-1.0 - mg/dL?Aspartate Amino Wjyxozwguqx530-79 - U/L?Alanine Smsgaqpbeuuulaqh980-71 - U/L?Total Protein7.96.5-8.0 - g/dL?Albumin Level4.83.5-5.0 - g/dL?Alkaline Nhboxjzdvzm3175-060 - U/L?Potassium3.83.3-5.1 - mmol/L?Uyksnwer150 96-108 - mmol/L?Carbon Kvpwmyi1203-85 - mmol/L?Anion Txa4532-51 - ?Blood Urea Vbvlzqxg49G4-99 - mg/dL?Creatinine0.860.5-1.4 - mg/dL ?Estimated Glomerular Filt Rate> 60-?Glucose Xxwzxng8687-45 - mg/dL?Calcium9.08.4-10.2 - mg/dL ???Lab:Ferritin (Order Date - 09/20/2024) (Collection Date & Time - 09/20/2024 10:22 AM)?ValueReference Range?[id number] - ng/mL * Lab:Lipid Panel * Collection [...] lear to auscultation . BREASTS: N ot examined. ABDOMEN: b owel sounds normal, [...] lert, oriented. Assessment: * Assessment: 1. E levated cholesterol - E78.00 (Primary) N otes :She is going to learn the elements of a cholesterol reduction diet and practice in 2 months and then return after another fasting lipid profile. If necessary. She will be given a statin. We discussed the risks and benefits and rationale for statin medication today. 2 . E nvironmental allergies - Z91.09 N otes :At her request I have referred her to an high school library media specialist. It is possible she has a food allergy or other causes oral blistering and ulceration. 3 . G astroesophageal reflux disease with esophagitis without hemorrhage - K21.00 N otes :A regimen of antacid therapy was initiated today. Plan: * Treatment: 2. O thers Continue Norethindrone Tablet, 0.35 MG, Oral. ? Referral To:[facility] Reason:Evaluate and Treat Low Cholesterol Diet * Procedure Codes: * Follow Up: 2 Months (Reason: OV) * Images: * Sign off status: Completed true * Provider: Andrew Gutiérrez MD Date: 0 10/05/2024 Generated for Moriah sandoval/Brooks/Susyitting on: 0 11/28/2024 09:16 AM EDT History and Physical Notes * HPI (History of Present Illness) Category Sub-Category Detail Notes COVID-19 Screening Questions Have you had any new onset fever, chills, cough, congestion, sore throat, shortness of breath, muscle aches?: No Examination Category Sub-Category Detail Notes General Examination [...] s, anicteric PERIPHERAL PULSES: normal BREASTS: Not examined MUSCULOSKELETAL: extremities unremark able, no clubbing, cyanosis or edema LYMPH NODES: no enlarged lymph no addison,spleen normal RECTAL EXAM: not examined PSYCH: alert, oriented ORAL CAVITY: normal, unremarkable Consultation Request Notes Referral Date Referring Provider Referred Provider Not eric 10/05/2024 Joseph Gutiérrez NUTRIT[facility] N, SERVICES Evaluate and Treat Low Cholesterol Diet
--- OUTSIDE RECORDS SUMMARY | 2024-11-28 09:16 | XMS_ITS | Patient Health Record ---
Author Organization Joseph Gutiérrez III, MD Address [address] [place] [address] Care Team Providers Care Rate Supervisor Name Role Phone Joseph Gutiérrez Primary Care Provider [phone] Allergies Allergen (clinical drug ingredient) Drug/Non Drug Allergy documented on EMR Reaction Allergy Type Onset Date Status No Known Drug Allergy Unknown Drug Allergy Active No Known Food Allergy Unknown Drug Allergy Active Results Component Value Reference Range Notes Complete Blood Count Auto Di ff Reviewed date:09/21/2024 03:34:45 PM Interpretation: Performing Lab:[facility], [address] [place] [phone] Notes/Report: White Blood Count 6.9 4.8-10.8 X10*3/uL Red Blood Count 4.58 4.20-5.50 X10*6/uL Hemoglobin 14.4 12.0-16.0 g/dl Hematocrit 41.6 37.0-47.0 % Mean Corpuscular Volume 90.8 80.0-98.0 fL Mean Corpuscular Hemoglobin 31.4 27.0-33.0 pg Mean Corpuscular HGB Conc 34.6 31.0-35.0 g/dl Red Cell Distribution Width 11.5 11.0-16.0 % Platelet Count 317 160-400 X10*3/uL Mean Platelet Volume 9.6 9.4-12.3 fL Neutrophils Percent Auto 53.8 45-73 % Imm Gran Pct Auto 0.4 0.0-0.4 % Lymphocytes Percent Auto 34.7 20-40 % Monocytes Percent Auto 9.1 2-11 % Eosinophils Percent Auto 1.4 0-4 % Basophils Percent Auto 0.6 0-2 % NRBC Pct Auto 0.0 0.0-0.2 /100WBC Neutrophils Absolute Auto 3.7 2.0-8.3 x10*3/u L Imm Gran Abs Auto 0.03 0.00-0.03 X10*3/uL Lymphocytes Absolute Auto 2.4 1.2-4.9 X10*3/u L Monocytes Absolute Auto 0.6 0.1-1.2 X10*3/uL Eosinophils Absolute Auto 0.1 0.0-0.4 X10*3/u L Basophils Absolute Auto 0.0 0.0-0.2 X10*3/uL NRBC Abs Auto 0.000 0.0-0.012 X10*3/uL Comprehensive [facility]. Panel Fa st Reviewed date:09/21/2024 03:34:45 PM Interpretation: Performing Lab:[facility], [address] [place] [phone] Notes/Report: Sodium 138 135-145 mmol/L Potassium 3.8 3.3-5.1 mmol/L Chloride 106 96-108 mmol/L Carbon Dioxide 24 22-29 mmol/L Anion Gap 12 12-20 Blood Urea Nitrogen 18 9-16 mg/dL Creatinine 0.86 0.5-1.4 mg/dL Estimated Glomerular Filt Rate > 60 Chronic Kidney Disease: Estimated GFR < 60 mL/min/1.73m2 Severe Kidney Disease: Estimated GFR < 15 mL/min/1.73m2 Glucose Fasting 95 60-99 mg/dL Calcium 9.0 8.4-10.2 mg/dL Bilirubin Total 0.4 0.0-1.0 mg/dL Aspartate Amino Transferase 19 5-31 U/L Alanine Aminotransferase 23 0-31 U/L Total Protein 7.9 6.5-8.0 g/dL Albumin Level 4.8 3.5-5.0 g/dL Alkaline Phosphatase 47 39-117 U/L Ferritin Reviewed date:09/21/2024 03:34:45 PM Interpretation: Performing Lab:[facility], [address] [place] [phone] Notes/Report: Ferritin 244 10-122 ng/mL Lipid Panel Reviewed date:09/21/2024 03:34:45 PM Interpretation: Performing Lab:[facility], [address] [place] [phone] Notes/Report: Triglycerides 91 <150 mg/dL Desirable Triglyceride: less than 150 mg/dL Borderline High Triglyceride 150-199 mg/dL High Triglyceride: 200-499 mg/dL Very High Triglyceride: greater than or equal to 5OO mg/dL Cholesterol 274 <200 mg/dL Desirable Cholesterol: less than 200 mg/dL Borderline High Cholesterol: 200-239 mg/dL High Cholesterol: greater than 239 mg/dL LDL Cholesterol Calculated 202 <100 mg/dL Desirable LDL: less than 100 mg/dL Near Optimal/Above Optimal LDL: 110-129 mg/dL Borderline High LDL: 130-159 mg/dL High LDL: 160-189 mg/dL Very High LDL: greater than or equal to 190 mg/dL HDL Cholesterol 54 >40 mg/dL Desirable HDL: greater than 40 mg/dL Note: This HDL assay may give artificially low results in patients with liver disease. Lipid Panel Reviewed date:10/22/2024 07:24:05 PM Interpretation: Performing Lab:[facility], [address] [place] [phone] Notes/Report: Triglycerides 76 <150 mg/dL Desirable Triglyceride: [...] low results in patients with liver disease. Reason For Referral Reason Evaluate and Treat Low Cholesterol Diet Diagnosis 1 High cholesterol (E7 8.00) Referral Organization Joseph Gutiérrez III, MD Referring Provider First Name Joseph Referring Provider Last Name Brock Referring Provider Speciality Internal M edicine Referred Provider [facility] Referred Provider Specialty Nutrition General Notes Roz Ellis 10/05/2024 10:51:34 AM > Cover sheet, referral and demographics faxed to Charmaine Gutiérrez. Patient was advised to contact and schedule appt with her or with [facility]., Roz Ellis 10/05/2024 01:35:22 PM > Patient was able to schedule an appointment with [facility] for 10/06/24 @ 9:30am Referral Priority Routine Referral Appointment Date 10/06/2024 Medications Medication SIG (Take, Route, Fr equency, [...] Status Risk Notes Problem Mumps without complication (477512481) Mumps without complication (B26.9) Active confirmed Problem 65722970 Iron deficiency (E61.1) Active confirmed This problem is now resolved. Her CBC is unremarkable . Problem Food allergy (965675711) Allergy to other foods (Z91.018) Active confirmed Problem 793487366 Environmental allergies (Z91.09) Active confirmed At her request I have referred her to an battery assembler plastic. It is possible she has a food allergy or other causes oral blistering and ulceration. Problem High cholesterol (91190716) High cholesterol (E78.00) Active confirmed Problem 95278416 Elevated cholesterol (E78.00) Active confirmed She is going to learn the elements of a cholesterol reduction diet and practice in 2 months and then return after another fasting lipid profile. If necessary. She will be given a statin. We discussed the risks and benefits and rationale for statin medication today. Problem 328328297 Gastroesophageal reflux disease with esophagitis without hemorrhage (K21.00) Active confirmed A regimen of antacid therapy was initiated today. Vital Signs Heart Rate 80 /min 10/05/2024 Temperature 97.5 degrees Fahrenheit 10/05/2024 Blood pressure diastolic 68 mm Hg 10/05/2024 Height 63 in 10/05/2024 Blood pressure systolic 131 mm Hg 10/05/2024 Weight 134 lbs 10/05/2024 BMI 23.73 kg/m2 10/05/2024 Encounters Encounter Location Date Provider Diagnosis Joseph Gutiérrez III, MD [address] [place] [address] [place] [address] 09/26/2024 Joseph Gutiérrez Iron deficiency E61. 1 ; Environmental allergies Z91.09 ; Gastroesophageal reflux disease with esophagitis without hemorrhage K21.00 and Elevated cholesterol E78.00 Joseph Gutiérrez III, MD [address] [place] [address] [address] [place] [address] 10/05/2024 Joseph Gutiérrez Elevated cholesterol E78.00 ; [...] request I have referred her to an battery assembler plastic. It is possible she has a food allergy or other causes oral blistering and ulceration. 10/05/2024 Environmental allerg ies (ICD-10 - Z91.09) At her request I have referred her to an battery assembler plastic. It is possible she has a food allergy or other causes oral blistering and ulceration. 10/05/2024 Elevated cholesterol (ICD-10 - E78.00) She is going to learn the elements of a cholesterol reduction diet and practice in 2 months and then return after another fasting lipid profile. If necessary. She will be given a statin. We discussed the risks and benefits and rationale for statin medication today. 09/26/2024 Gastroesophageal ref lux disease with esophagitis without hemorrhage (ICD-10 - K21.00) A regimen of antacid therapy was initiated today. 10/05/2024 Gastroesophageal ref lux disease with esophagitis without hemorrhage (ICD-10 - K21.00) A regimen of antacid therapy was initiated today. 09/26/2024 Elevated cholesterol (ICD-10 - E78.00) A previous value was 206. It is now 274 fasting. This value will be repeated Plan Of Treatment Pending Test Test Name Order Date PROFILE, FASTING (COMPREHENSIVE METABOLI C) 07/23/2022 PROFILE, FASTING (COMPREHENSIVE METABOLI C) 09/26/2024 PROFILE, FASTING (COMPREHENSIVE METABOLI C) 09/23/2023 PROFILE, FASTING (COMPREHENSIVE METABOLI C) 05/21/2021 PROFILE, FASTING (COMPREHENSIVE METABOLI C) 03/15/2020 PROFILE, RANDOM (COMPREHENSIVE METABOLIC ) 02/03/2018 LIPID PANEL 03/15/2020 LIPID PANEL 02/03/2018 LIPID PANEL 05/21/2021 CBC w DIFF 07/23/2022 CBC w DIFF 03/15/2020 CBC w DIFF 09/26/2024 CBC w DIFF 02/03/2018 CBC w DIFF 05/21/2021 CBC WITH AUTO DIFF 09/23/2023 Ferritin 09/23/2023 Lipid Panel 10/05/2024 Lipid Panel 09/23/2023 Next Appt Details Provider Name:Joseph Gutiérrez, 12/06/2024 09:00:00 AM, [address] [place] [address] [address], [place], [address], Provider Name:Joseph Gutiérrez, 09/27/2025 09:30:00 AM, [address] [place] [address] [address], [place], [address], Insurance Providers Payer Name Payer Address Payer Phone Subscriber Number Group Number Insured Name Patient Relationship to Insured Coverage Start Date Coverage End Date [facility] [address] [place], [place] [id number] [place] Venegas Self - patient is the insured Medical (General) History Medical History History ICD Code episode of syncope iron deficiency anemia Surgical History Surgery Date(Month/Year) no history of surgical procedures
[2024-11-28 09:49] LABS: Cholesterol 183 mg/dL (<200); HDL Cholesterol 37 mg/dL (>40); Triglycerides 76 mg/dL (<150)
== END 2024-11-28 08:23 | disposition home or self-care (01) ==
LOC: HO.LAB 08:22
PROVIDERS: PCP Internal Medicine Medical Oncology; Visit Provider Internal Medicine Medical Oncology
DX: E78.00 Pure hypercholesterolemia, unspecified (principal)
CPT/HCPCS: 36415; 80061

== ENCOUNTER 2025-02-14 09:23 | Outpatient (AMB) | payer BC, SELFPAY ==
--- NOTE | 2025-02-14 09:35 | MHC.OFFVIS ---
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 Doing well on Sparks. History of random leg pain with walking, prefers less hormones. Currently is sexually active w/. She denies vaginal itching or irritation. STI screening offered; she declined. She tries to eat healthy and stays active with exercise-less since hip pain x 5 wks. Last pap smear 2020, negative. She denies any contraindications to control such as: migraines with aura, history of DVT or pulmonary emboli, high blood pressure, liver disease, thrombolic disorders, Lupus, +HERMELINDA, breast cancer, or smoking. PFSH Family History Paternal Grandfather Colon cancer Social History Alcohol intake: current Alcohol intake frequency: holidays/special occasions only Patient Tobacco Use Status: Never used Tobacco Sexual orientation: Straight/Heterosexual Gender identity: Female Female Reproductive History Menstrual Age of Menarche: 11 Duration of menses: 3-5 days Date of last menstrual period: 01/23/25 control method: pills Total pregnancies: 0 Date of last pap smear: 04/17/20 (neg pap and hpv) Review of Systems Const All systems reviewed & are unremarkable except as noted in HPI and below Reports as per HPI Eyes Reports no additional complaints ENT Reports no additional complaints Card Reports no additional complaints Resp Reports no additional complaints GI Reports as per HPI and Reports no additional complaints Reports as per HPI Musc Reports no additional complaints Skin/Breast Reports as per HPI Neuro Reports no additional complaints Psych Reports no additional complaints Endo Reports no additional complaints Rainer/Lymph Reports no additional complaints Aller/Immun Reports no additional complaints Physical Exam Vital Signs: Last Vital Signs BP 122/72 02/14/25 09:36 BMI result Body Mass Index 24.7 Const General: cooperative, healthy appearing, no acute distress, well developed and alert Orientation/consciousness: patient oriented x3 HEENT Head: Yes normal to inspection Eyes General: appearance normal, both eyes and all related structures Neck Neck: Yes normal visual inspection Thyroid: Thyroid normal Chest Chest palpation & inspection: normal inspection of the chest and other (no puckering, dimpling, peau de orange, retraction, discharge, masses) Breast/axilla inspection: normal inspection of the breasts Breast/axilla palpation: normal palpation of the breasts Resp Effort & Inspection: normal respiratory effort GI Inspection: Yes normal to inspection Palpation (GI): Soft to palpation Rectal Exam - Female: deferred General: Yes bladder normal to palpation External Female Exam: normal external appearance and normal appearance of the urethra Speculum Exam - Vagina: normal appearance of the vagina, normal palpation and normal vaginal discharge Speculum Exam - Cervix: normal appearance of the cervix and normal palpation Bimanual exam- vagina & uterus: normal bimanual exam, normal palpation, uterine size normal, bladder normal to palpation, normal palpation and non-tender Bimanual Exam- Adnexa, other: no masses Skin General skin exam: no rashes or lesions noted Rashes: no rashes Neuro General: patient oriented x3 Cognition (Neuro): normal cognition Extrem General: Yes normal to inspection Psych Attitude: cooperative Thought process: Normal thought process present Assessment & Plan Assessment & Plan (1) Encounter for annual routine gynecological examination: Code(s): Z01.419 - Encounter for gynecological examination (general) (routine) without abnormal findings Category: Medical Plan Discussed: Current recommendations for pap smears per ASCCP guidelines. Breast awareness and periodic breast exams. Maintain a healthy lifestyle including a well balanced diet and routine exercise. control hormone use warnings: go to ER if and loss of vision, blindness, severe headache, chest pain or difficulty breathing, severe abdominal pain, or any pain or swelling in an extremity. Consider PT for hip pain advised to speak with her primary care for referral. Plan continue Solange use, to pause for 30 days to have her labs checked, follow up pending labs tele visit okay. Patient verbalizes understanding and agrees to the plan of care. She was given opportunity to ask questions and all questions were answered to the best of my ability. 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 This note is constructed using voice recognition software. While every effort has been made to ensure accuracy, adult nurse practitioner errors may have been included. Orders: Orders TSH reflex Free T4 Today L68.0 - Hirsutism Vitamin D 25-OH (D2 and D3) Today L65.9 - Nonscarring hair loss, unspecified Testosterone, Free/Total Today L68.0 - Hirsutism Prolactin Today L68.0 - Hirsutism DHEA Sulfate Today L68.0 - Hirsutism 17 Hydroxyprogesterone Today L68.0 - Hirsutism Medications: Refilled norethindrone (contraceptive) (Shari) 0.35 mg PO DAILY 84 tabs 3RF 28 days Coding Level of Care Code Est Pt Prev Care 18-39y(85898) Diagnoses Encounter for annual routine gynecological examination Z01.419
[2025-02-14 09:36] VITALS: BP 122/72; BMI 24.7
== END 2025-02-14 10:12 | disposition home or self-care (01) ==
LOC: HO.HWS 09:23
PROVIDERS: PCP Internal Medicine Medical Oncology; Visit Provider Advanced Practice Midwife
DX: Z01.419 Encounter for gynecological examination (general) (routine) without abnormal findings (principal)
CPT/HCPCS: 99395; 99459